=== PATIENT | female | born 1930 | race Caucasian/White ===

== ENCOUNTER 2018-01-22 09:49 | Observation (INO) | payer OTHER ==
[2018-01-22] MEDS ORDERED: VANCOMYCIN 750 MG in DEXTROSE 5%-WATER - 250 ML IVPB ONE (10:22)
[2018-01-22] MEDS ORDERED: PIPERACILLIN/TAZOB 3.375 GM 3.375 GM in DEXTROSE 5%-WATER - 50 ML IVPB ONE (10:22)
--- NOTE | 2018-01-22 10:30 | PDOC ---
History of Present Illness - General Chief Complaint: PICC Line Insertion Stated Complaint: PICC LINE INSERTION Time Seen by Provider: 01/22/18 10:01 History Source: Patient Exam Limitations: No Limitations - History of Present Illness Initial Comments: 01/22/18 10:25 Patient is an 87F with history of HTN, anxiety and DM here today from [facility] her PICC line was dislodged. residential reports that her PICC line came out while being moved and that they were unable to establish IV access. Patient is currently getting Vanc 750 and Zosyn 3.375 for osteomyelitis in the R foot. Patient states that she currently feels fine. Denies fevers, chills, nausea, vomiting. Denies chest pain and shortness of breath. Past History - Past Medical History Allergies/Adverse Reactions: Allergies Allergy/AdvReac Type Severity Reaction Status Date / Time ciprofloxacin [From Cipro] AdvReac Unknown Verified 01/22/18 10:10 Home Medications: Ambulatory Orders Amlodipine Besylate 10 mg PO DAILY 01/22/18 Apixaban [Eliquis] 5 mg PO BID 01/22/18 Ascorbic Acid [Vitamin C] 500 mg PO DAILY 01/22/18 Cholecalciferol (Vitamin D3) [Vitamin D3] 5,000 unit PO DAILY 01/22/18 Docusate Sodium [Colace] 100 mg PO HS 01/22/18 Ergocalciferol (Vitamin D2) [Vitamin D2] 50,000 unit PO WEEKLY 01/22/18 HYDROmorphone [Dilaudid -] 2 mg PO Q4H 01/22/18 Hydralazine HCl 10 mg PO Q8H 01/22/18 Lactulose (Oral Use) [Cephulac -] 30 ml PO DAILY 01/22/18 Nortriptyline HCl [Pamelor -] 25 mg PO HS 01/22/18 Pantoprazole Sodium 40 mg PO DAILY 01/22/18 Piperacillin/Tazob 3.375 gm [Zosyn -] 3.375 gm IV Q8H 01/22/18 Polyethylene Glycol 3350 [Miralax (For Daily Use) -] 17 gm PO DAILY 01/22/18 Polyvinyl Alcohol [Artificial Tears] 1 drop OD BID 01/22/18 Sennosides [Senna] 2 tab PO DAILY 01/22/18 Valsartan 80 mg PO DAILY 01/22/18 Vancomycin/0.9 % Sod Chloride [Vanco 750 mg/150 ml-0.9% NaCl] 750 mg IV BID Zinc 220 mg PO DAILY 01/22/18 Cardiac Disorders: Yes (A-FIB, ATHEROSCLEROTIC HEART DISEASE) COPD: No Diabetes: Yes (NIDDM) HTN: Yes Psychiatric Problems: Yes (MAJOR DEPRSSIVE DISORDER, SINGLE EPISODE) Other medical history: OSTEOPOROSIS, OSTEOMYLETITIS RIGHT FOOT, 3RD DIGIT, RT SHOULDER FRACTURE - Suicide/Smoking/Psychosocial Hx Smoking History: Never smoked Review of Systems - Review of Systems Comments:: 01/22/18 10:30 GENERAL/CONSTITUTIONAL: No fever or chills. No weakness. HEAD, EYES, EARS, NOSE AND THROAT: No change in vision. No sore throat. CARDIOVASCULAR: No chest pain or shortness of breath RESPIRATORY: No cough, wheezing, or hemoptysis. GASTROINTESTINAL: No nausea, vomiting, diarrhea or constipation. GENITOURINARY: No dysuria, frequency, or change in urination. MUSCULOSKELETAL: No joint or muscle swelling or pain. No neck or back pain. SKIN: No rash NEUROLOGIC: No headache, vertigo, loss of consciousness, or change in strength/ sensation. HEMATOLOGIC/LYMPHATIC: No anemia, easy bleeding, or history of blood clots. ALLERGIC/IMMUNOLOGIC: No hives or skin allergy. *Physical Exam - Vital Signs Last Vital Signs Temp Pulse Resp BP Pulse Ox 97.5 F L 67 20 128/65 97 01/22/18 10:10 01/22/18 10:10 01/22/18 10:10 01/22/18 10:10 01/22/18 10:10 - Physical Exam Comments: 01/22/18 10:30 GENERAL: Awake, alert, and fully oriented, in no acute distress R FOOT: Healing ulcer on medial aspect of 3rd toe. No erythema or swelling. Nontender. Additional small ulcer on plantar aspect of second toe. No surrounding erythema or discharge. HEAD: No signs of trauma, normocephalic, atraumatic EYES: PERRLA, EOMI, sclera anicteric, conjunctiva clear ENT: Auricles normal inspection, hearing grossly normal, nares patent, oropharynx clear without exudates. Moist mucosa NECK: Normal ROM, supple, no lymphadenopathy, JVD, or masses LUNGS: No distress, speaks full sentences, clear to auscultation bilaterally HEART: Regular rate and rhythm, normal S1 and S2, no murmurs, rubs or gallops, peripheral pulses normal and equal bilaterally. ABDOMEN: Soft, nontender, normoactive bowel sounds. No guarding, no rebound. No masses EXTREMITIES: Normal inspection, Normal range of motion, no edema. No clubbing or cyanosis. NEUROLOGICAL: Cranial nerves II through XII grossly intact. Normal speech, no focal sensorimotor deficits SKIN: Warm, Dry, normal turgor, no rashes or lesions noted. ED Treatment Course - LABORATORY CBC & Chemistry Diagram: 01/22/18 11:17 01/22/18 11:17 - RADIOLOGY Radiology Studies Ordered: Category Date Time Status CXRPORT [CHEST X-RAY PORTABLE*] [RAD] Stat Radiology 01/22/18 10:20 Ordered Medical Decision Making - Medical Decision Making 01/22/18 10:31 Patient is 87F with history of osteomyelitis of right foot, HTN, DM, anxiety here today for IV antibiotics. Vital signs normal and stable. No reason to re- culture. Will draw basic labs to establish baseline, given vanc/zosyn at doses given in [facility]. Will also give pre-admission ekg and cxrs. 01/22/18 11:16 CXR shows no infiltrate, does show cardiomegaly, old shoulder trauma. 01/22/18 11:27 Dr Colvin accepted to med/surg. 01/22/18 11:30 EKG shows afib with rate of 65. No st elevations/depressions. No significant t- wave abnormalities. Normal axis. Normal QRS/QTc intervals. 01/22/18 11:59 CBC shows slight anemia, no leukocytosis. 01/22/18 12:07 CMP reassuring. *DC/Admit/Observation/Transfer Diagnosis at time of Disposition: Osteomyelitis - Discharge Dispostion Condition at time of disposition: Stable Decision to Admit order: Yes - Referrals - Patient Instructions - Post Discharge Activity
[2018-01-22 10:44] VITALS: BMI 31.8
[2018-01-22] MEDS ORDERED: PIPERACILLIN/TAZOB 3.375 GM 3.375 GM/50 ML BAG IVPB ONE (11:08)
[2018-01-22] MEDS ORDERED: HYDROmorphone HCL 2 MG TABLET PO ONE (11:23)
[2018-01-22] MEDS ORDERED: HYDROmorphone HCL 2 MG TABLET ONE (11:24)
[2018-01-22 11:28] LABS: HEMOGLOBIN 10.4 GM/dL (10.7-15.3); MCH 28.8 pg (25.7-33.7); MCHC 32.6 g/dl (32.0-36.0); MEAN CELL VOLUME 88.5 fl (80-96); PLATELET COUNT 381 K/MM3 (134-434); RBC 3.62 M/mm3 (3.60-5.2); RDW 14.2 % (11.6-15.6)
--- NOTE | 2018-01-22 11:28 | PDOC ---
Attending Attestation - HPI HPI: 01/22/18 11:34 The patient is an 87 year old female with history significant for hypertension, R foot osteomyelitis, being treated with Vanc and Zosyn via PICC line, sent from [facility] for PICC line replacement. [place] staff report PICC line became dislodged while moving the patient. [place] staff were unable to replace PICC line and the patient was send to the ED for further management. Patient denies any physical complaint on evaluation. - Physicial Exam PE: 01/22/18 11:37 Vitals: Triage vital signs reviewed General Appearance: No acute distress, well nourished, well developed Head: Atraumatic Neck: Supple; No nuchal rigidity Chest Wall: Nontender Cardiac: +Systolic murmur. Regular rate and rhythm, no rubs, no gallops Lungs: Clear to auscultation bilateral, good air movement bilaterally Abdomen: Soft, nondistended, normal bowel sounds, nontender to palpation Extremities: Full range of motion to all extremities, no cyanosis, clubbing, or edema Skin: Warm and dry. +Small healing ulcers aspect on medial aspect of third toe and plantar aspects of second toe. Neuro: AOX3; Cranial Nerves 2-12 grossly intact, Strength intact to all extremities, Sensation intact to all extremities, gait deferred Psych: Normal mood, normal affect - Medical Decision Making 01/22/18 11:39 The patient is an 87 year old female with history significant for hypertension, R foot osteomyelitis, being treated with Vanc and Zosyn via PICC line, sent from [facility] for PICC line replacement. Case discussed with Dr. Tolu Colvin, who admits for [facility], who agrees to admission. <Sunni Jaeger - Last Filed: 01/22/18 12:15> - Resident Resident Name: Jaxon Ellis - ED Attending Attestation I have performed the following: I have examined & evaluated the patient, The case was reviewed & discussed with the resident, I agree w/resident's findings & plan, Exceptions are as noted - Medical Decision Making 01/22/18 17:12 Patient with loss of PICC line. IV placed. We'll observe overnight for possible replacement of PICC line and IV antibiotics. <Cachorro Patel - Last Filed: 01/22/18 17:12> Heart Score/ECG Review - ECG Impressions Comment:: 01/22/18 17:12 EKG performed at 1059. Demonstrates atrial fibrillation at [address] elevations. No T-wave inversions. Normal axis. Interpreted by me. <Cachorro Patel - Last Filed: 01/22/18 17:12>
[2018-01-22 11:59] LABS: ALBUMIN 2.9 g/dl (3.4-5.0); ANION GAP 8 (8-16); BILIRUBIN,TOTAL 0.4 mg/dL (0.2-1.0); BLOOD UREA NITROGEN 22 mg/dL (7-18); CALCIUM 8.9 mg/dL (8.5-10.1); CHLORIDE 105 mmol/L (98-107); CO2 25 mmol/L (21-32); CREATININE 0.9 mg/dL (0.55-1.02); GLUCOSE,RANDOM 136 mg/dL (74-106); POTASSIUM 4.6 mmol/L (3.5-5.1); SGOT/AST 27 U/L (15-37); SGPT/ALT 34 U/L (12-78); SODIUM 138 mmol/L (136-145); TOT PROT 6.1 g/dl (6.4-8.2)
[2018-01-22 12:00] LABS: ALK PHOS 107 U/L (45-117)
[2018-01-22] MEDS ORDERED: morphine CARPU-JECT 4 MG/1 ML DISP.SYRIN IVPUSH ONE (12:11)
[2018-01-22] MEDS ORDERED: morphine SULFATE 4 MG/ML VIAL ONE (12:47)
--- NOTE | 2018-01-22 15:47 | HP ---
Admitting History and Physical - Primary Care Physician PCP: Tolu Colvin - Admission Chief Complaint: no i/v access History of Present Illness: pt seen/ examined Chart reviewed Per ER Records Patient is an 87F with history of HTN, anxiety,afib, s/p recent left hip replacement - ryan in place- and DM here today from [place] her PICC line was dislodged. correction reports that her PICC line came out while being moved and that they were unable to establish IV access. Patient is currently getting Vanc 750 and Zosyn 3.375 for osteomyelitis in the R foot. Patient states that she currently feels fine. Denies fevers, chills, nausea, vomiting. Denies chest pain and shortness of breath. Pt admitted to floor i/v access obtained in er . chart reviewed. pt comfortable. History Source: Patient, Medical Record Limitations to Obtaining History: No Limitations - Smoking History Smoking history: Never smoked Home Medications - Allergies Allergies/Adverse Reactions: Allergies Allergy/AdvReac Type Severity Reaction Status Date / Time ciprofloxacin [From Cipro] AdvReac Unknown Verified 01/22/18 10:10 - Home Medications Home Medications: Ambulatory Orders Amlodipine Besylate 10 mg PO DAILY 01/22/18 Apixaban [Eliquis] 5 mg PO BID 01/22/18 Ascorbic Acid [Vitamin C] 500 mg PO DAILY 01/22/18 Cholecalciferol (Vitamin D3) [Vitamin D3] 5,000 unit PO DAILY 01/22/18 Docusate Sodium [Colace] 100 mg PO HS 01/22/18 Ergocalciferol (Vitamin D2) [Vitamin D2] 50,000 unit PO WEEKLY 01/22/18 HYDROmorphone [Dilaudid -] 2 mg PO Q4H 01/22/18 Hydralazine HCl 10 mg PO Q8H 01/22/18 Lactulose (Oral Use) [Cephulac -] 30 ml PO DAILY 01/22/18 Nortriptyline HCl [Pamelor -] 25 mg PO HS 01/22/18 Pantoprazole Sodium 40 mg PO DAILY 01/22/18 Piperacillin/Tazob 3.375 gm [Zosyn -] 3.375 gm IV Q8H 01/22/18 Polyethylene Glycol 3350 [Miralax (For Daily Use) -] 17 gm PO DAILY 01/22/18 Polyvinyl Alcohol [Artificial Tears] 1 drop OD BID 01/22/18 Sennosides [Senna] 2 tab PO DAILY 01/22/18 Valsartan 80 mg PO DAILY 01/22/18 Vancomycin/0.9 % Sod Chloride [Vanco 750 mg/150 ml-0.9% NaCl] 750 mg IV BID Zinc 220 mg PO DAILY 01/22/18 Review of Systems - Review of Systems Constitutional: reports: No Symptoms Eyes: reports: No Symptoms HENT: reports: Epistaxis Neck: reports: No Symptoms Cardiovascular: reports: No Symptoms Respiratory: reports: No Symptoms Gastrointestinal: reports: No Symptoms Genitourinary: reports: No Symptoms Musculoskeletal: reports: No Symptoms. denies: Joint Pain Neurological: reports: No Symptoms Psychiatric: reports: No Symptoms Physical Examination Vital Signs: Vital Signs Temperature 97.5 F L 01/22/18 10:10 Pulse Rate 65 01/22/18 13:30 Respiratory Rate 20 01/22/18 13:30 Blood Pressure 141/59 01/22/18 13:30 O2 Sat by Pulse Oximetry (%) 97 01/22/18 13:31 Constitutional: Yes: No Distress, Calm Eyes: Yes: Conjunctiva Clear Neck: Yes: Supple Cardiovascular: Yes: Pulse Irregular. No: Regular Rate and Rhythm Respiratory: Yes: CTA Bilaterally Gastrointestinal: Yes: Normal Bowel Sounds, Soft Extremities: Yes: Other (right 3rd toe- reddness / swelling +) Edema: No Wound/Incision: Yes: [place] Intact, Dressing Dry and Intact, Other (left hip) Neurological: Yes: Alert Psychiatric: Yes: Alert Labs: CBC, BMP 01/22/18 11:17 01/22/18 11:17 Imaging - Results Chest X-ray: Report Reviewed EKG: Report Reviewed Problem List - Problems (1) Osteomyelitis Code(s): M86.9 - OSTEOMYELITIS, UNSPECIFIED Assessment/Plan Stable Pt has iv access now Due to holiday - no picc line can be placed till tuesday I called [facility] and discussed They are wiling to take her back Advised to schedule as out pt for picc line with Radiology - IR dept also they tell me - she dont need isolation. I discussed with case manger -- She also agree with same and will assist in scheduling outpt f/u of r picc line I also discussed with pt - who is also in agreement All above discussed with Nursing staff also
[2018-01-22 17:48] VITALS: BP 139/60; PULSE 71; TEMP 98.1
--- NOTE | 2018-01-22 20:43 | EKG ---
Test Reason : Blood Pressure : / mmHG Vent. Rate : 065 BPM Atrial Rate : 288 BPM P-R Int : 000 ms QRS Dur : 072 ms QT Int : 396 ms P-R-T Axes : 000 042 066 degrees QTc Int : 411 ms ATRIAL FIBRILLATION CANNOT RULE OUT ANTERIOR INFARCT , AGE UNDETERMINED ABNORMAL ECG NO PREVIOUS ECGS AVAILABLE Confirmed by BECCA CHONG, LV ([id number]) on 01/22/2018 8:43:14 PM Referred By: Confirmed By:LV HUDSON MD
== END 2018-01-22 17:30 ==
LOC: JER 09:49 → INTOOBSV 11:27 → UNDOADMOB 11:27 → JERBED 11:27 → J7W 14:25 → JERBED 14:25 → J7W 15:53 → JERBED 15:53
PROVIDERS: ADMIT Internal Medicine; ATTEND Internal Medicine
DX: M86.8X7 Other osteomyelitis, ankle and foot (principal); T82.524A Displacement of infusion catheter, initial encounter; I10 Essential (primary) hypertension; F41.9 Anxiety disorder, unspecified; E11.9 Type 2 diabetes mellitus without complications; I25.10 Atherosclerotic heart disease of native coronary artery without angina pectoris; F32.9 Major depressive disorder, single episode, unspecified; M81.0 Age-related osteoporosis without current pathological fracture; Z88.1 Allergy status to other antibiotic agents
CPT/HCPCS: 36415; 71045-TC-FY; 80053; 85027; 93005; 93010; 96365; 96368; 99285-25; G0378

== ENCOUNTER → 2018-01-25 | Day surgery (SDC) | payer OTHER | END | disposition home or self-care (01) | LOC: JRADIR 13:41 | PROVIDERS: ATTEND Internal Medicine | PROC: 02HV33Z Insertion of Infusion Device into Superior Vena Cava, Percutaneous Approach (ICD-10-PCS; principal; 2018-01-25) | PROC: B518ZZA Fluoroscopy of Superior Vena Cava, Guidance (ICD-10-PCS; 2018-01-25) | DX: M86.9 Osteomyelitis, unspecified (principal) | CPT/HCPCS: 36569; 77001-TC-FY; C1751 ==